=== PATIENT | male | born 1950 | race African-American/Black ===

== ENCOUNTER 2020-02-21 09:16 | Inpatient (IN) | payer MEDICAID ==
[~2020-02-21] VITALS: Ht 185.4 cm; Wt 104.0 kg
[2020-02-21 10:11] LABS: CHLORIDE 100 mEq/L (98-107); PROTHROMBIN TIME 10.8 sec (9.6-11.0)
[2020-02-21 10:12] LABS: CLARITY URINE CLEAR (CLEAR); COLOR URINE YELLOW (YELLOW); KETONES URINE NEGATIVE (NEGATIVE); LEUKOCYTE ESTERASE URINE NEGATIVE (NEGATIVE); NITRITE URINE NEGATIVE (NEGATIVE); OCCULT BLOOD URINE NEGATIVE (NEGATIVE); PH URINE 7.5 (4.5-8.0); PROTEIN URINE NEGATIVE (NEGATIVE); SPECIFIC GRAVITY URINE 1.018 (1.005-1.030)
[2020-02-21 10:16] LABS: ETHANOL BLOOD < 10 mg/dL
[2020-02-21 10:17] LABS: BASOPHILS % 0.4 % (0.0-2.0); EOSINOPHILS % 2.6 % (0.0-5.0); HEMATOCRIT. 42.9 % (42.0-52.0); HEMOGLOBIN. 14.5 g/dL (14.0-18.0); LYMPHOCYTES % 25.5 % (20.0-50.0); MEAN CORPUSCULAR HEMOGLOBIN 30.6 pg (28.0-32.0); MEAN CORPUSCULAR VOLUME 90.9 fL (80.0-94.0); MEAN PLATELET VOLUME 8.3 fl (7.4-10.4); MONOCYTES % 9.2 % (2.0-8.0); NEUTROPHILS % 62.3 % (40.0-76.0); PLATELET 245 x1000/uL (130-400); RED BLOOD CELL COUNT 4.72 mill/uL (4.7-6.1); RED CELL DISTRIBUTION WIDTH 14.4 % (11.6-14.6)
[2020-02-21 10:29] LABS: *BARBITURATES SCREEN URINE NEGATIVE (NEGATIVE); *BENZODIAZEPINES SCREEN URINE NEGATIVE (NEGATIVE); *COCAINE SCREEN URINE NEGATIVE (NEGATIVE)
[2020-02-21 10:30] LABS: *AMPHETAMINES SCREEN URINE NEGATIVE (NEGATIVE); CANNABINOID URINE SCREEN NEGATIVE (NEGATIVE); METHADONE URINE SCREEN NEGATIVE (NEGATIVE); OPIATES URINE SCREEN NEGATIVE (NEGATIVE); PHENCYCLIDINE URINE SCREEN NEGATIVE (NEGATIVE)
[2020-02-21] MEDS ORDERED: HYDROCODONE/ACETAMINOPHEN 5/325MG TABLET PO ONE (12:30)
[2020-02-21] MEDS ORDERED: ONDANSETRON HCL 4MG/2ML INJ IV PRN (13:15)
[2020-02-21] MEDS ORDERED: ACETAMINOPHEN 325MG TABLET PO PRN (13:15)
[2020-02-21] MEDS ORDERED: ATORVASTATIN CALCIUM 20MG TABLET PO SCH (22:00)
[2020-02-21 22:15] VITALS: BP 164/90
[2020-02-21] MEDS: AMLODIPINE 5MG TABLET PO SCH (22:26)
[2020-02-21] MEDS: LOSARTAN POTASSIUM 50 MG TABLET PO SCH (22:27)
[2020-02-21 23:00] VITALS: BP_SYST 157; BP_SYST 164; BP_SYST 168; BP_DIAS 78; BP_DIAS 83; BP_DIAS 90
[2020-02-22] VITALS: BP 164/84
[2020-02-22 04:00] VITALS: BP 119/68
[2020-02-22 08:00] VITALS: BP 125/78
[2020-02-22] MEDS: LOSARTAN POTASSIUM 50 MG TABLET PO SCH (09:20)
[2020-02-22] MEDS: AMLODIPINE 5MG TABLET PO SCH (09:21)
[2020-02-22 12:00] VITALS: BP 151/83
[2020-02-22] MEDS ORDERED: AMLO5TAB88 PO (12:39)
[2020-02-22] MEDS ORDERED: LOSA50TA3 PO (12:39)
[2020-02-22] MEDS ORDERED: ATOR20TA PO (12:39)
[2020-02-22 14:34] VITALS: BP 151/83
== END 2020-02-22 15:45 | disposition home or self-care (01) | DRG 199 ==
LOC: ER 10:02 → EDBEDREQ 12:53 → EDBEDREQTM 12:53 → ENRESERV 20:23 → 6WST 21:32
PROVIDERS: ADMIT Internal Medicine; ATTEND Internal Medicine
DX: I16.0 Hypertensive urgency (principal); G90.8 Other disorders of autonomic nervous system; E66.9 Obesity, unspecified; I10 Essential (primary) hypertension; E78.5 Hyperlipidemia, unspecified; Z68.30 Body mass index [BMI] 30.0-30.9, adult
CPT/HCPCS: 36415; 71045; 80053; 80061; 80305; 80320; 81003; 83880; 84443; 84484; 85025; 93005; 97162; 99285; G0480